=== PATIENT | male | born 1955 | race Caucasian/White ===

== ENCOUNTER 2016-12-21 06:24 | Observation (INO) | payer OTHER ==
[2016-12-19 10:05] VITALS: BP 155/72
[2016-12-19 10:43] LABS: HEMOGLOBIN 16.1 g/dL (13.7-18.0)
[2016-12-19 10:57] LABS: ASPARTATE AMINO TRANSFERASE 23 U/L (15-37); BLOOD UREA NITROGEN 15 mg/dL (7-18)
[~2016-12-21] VITALS: Ht 188 cm; Wt 131.6 kg
[~2016-12-21 06:24] MED LIST: HYDR-3138 PO; METO25TA91 PO; None per pt
[2016-12-21] MEDS ORDERED: MIDAZOLAM 1 MG/ML, 5ML ONE (07:22)
[2016-12-21] MEDS ORDERED: NITROGLYCERIN 5 MG/ML, 10ML ONE (07:22)
[2016-12-21] MEDS ORDERED: FENTANYL PF 100 MCG/2ML ONE (07:22)
[2016-12-21] MEDS ORDERED: VERAPAMIL 2.5 MG/ML, 2ML ONE (07:22)
[2016-12-21] MEDS ORDERED: LIDOCAINE 2%, 20ML ONE (07:23)
[2016-12-21] MEDS ORDERED: BIVALIRUDIN 250 MG ONE (07:23)
[2016-12-21] MEDS ORDERED: HEPARIN 1,000 UNITS/ML, 10ML ONE (07:23)
[2016-12-21] MEDS ORDERED: TICAGRELOR 90 MG TABLET ONE (07:23)
[2016-12-21] MEDS ORDERED: ADENOSINE 90 MG/30 ML ONE ×2 (08:22→08:26)
[2016-12-21] MEDS ORDERED: SODIUM CHLORIDE 0.9% 1,000 ML IV SCH (09:00)
[2016-12-21 09:20] VITALS: BP 168/93
[2016-12-21 11:00] VITALS: BP 137/77
[2016-12-21 13:00] VITALS: BP 136/77
[2016-12-21 13:04] VITALS: BP 152/84
[2016-12-21 19:52] VITALS: BP 149/82
[2016-12-21] MEDS ORDERED: ATORVASTATIN 40 MG TABLET PO SCH (21:00)
[2016-12-21] MEDS: TICAGRELOR 90 MG TABLET PO SCH (21:31)
[2016-12-22 02:20] VITALS: BP 137/81
[2016-12-22 02:57] VITALS: BP 137/81
[2016-12-22 04:57] LABS: HEMOGLOBIN 15.1 g/dL (13.7-18.0)
[2016-12-22 05:06] LABS: BLOOD UREA NITROGEN 14 mg/dL (7-18)
[2016-12-22 07:18] VITALS: BP 143/83
[2016-12-22] MEDS ORDERED: ATOR40TA78 PO (07:33)
[2016-12-22] MEDS ORDERED: ASPI-621 PO (07:33)
[2016-12-22] MEDS ORDERED: TICA90TA PO (07:33)
[2016-12-22] MEDS: TICAGRELOR 90 MG TABLET PO SCH (08:00)
[2016-12-22] MEDS ORDERED: ASPIRIN 81 MG TABLET EC PO SCH (09:00)
== END 2016-12-22 11:08 | disposition home or self-care (01) ==
LOC: CACL 06:24 → ORIP 09:02 → 5SO 09:36
PROVIDERS: ADMIT Internal Medicine Cardiovascular Disease; ATTEND Internal Medicine Cardiovascular Disease
DX: I25.110 Atherosclerotic heart disease of native coronary artery with unstable angina pectoris (principal); Z95.0 Presence of cardiac pacemaker
CPT/HCPCS: 36415; 71020; 80048; 80053; 82040; 85014; 85018; 85025; 85610; 85730; 93005; 93458; 93571; 93572; C1725; C1769; C1874; C1887; C1894; C9600; G0378; J0153; J0583; J1644; J2250; J3010; J3490; J7030; Q9967